=== PATIENT | male | born 1985 | race Caucasian/White ===

== ENCOUNTER 2021-12-04 19:55 | Observation (INO) | payer BC ==
[2021-12-04] MEDS ORDERED: ONDANSETRON 4 MG/2 ML VIAL ONE (20:52)
[2021-12-04] MEDS ORDERED: KETOROLAC 30 MG/ML INJ ONE (20:52)
[2021-12-04] MEDS ORDERED: NA CHLORIDE 0.9% 1,000 ML ONE (20:53)
[2021-12-04 21:14] LABS: Absolute Lymphocytes (CBC) 1.8 K/uL (0.7-4.9); Hematocrit 43.6 % (39.6-49.0); MCV 87.6 fL (80-100); MPV 8.3 fL (7.6-11.3); RBC Red Blood Cell Count 4.97 M/uL (4.33-5.43)
[2021-12-04 21:33] LABS: Albumin 4.1 g/dL (3.4-5.0); Bilirubin Direct 0.2 mg/dL (0-0.2); Bilirubin Total 0.7 mg/dL (0.2-1.0); Potassium 3.7 mmol/L (3.5-5.1); Protein, Total 7.1 g/dL (6.4-8.2)
--- NOTE | 2021-12-04 22:05 | RAD REPORT ---
EXAM DESCRIPTION: RAD - Chest Single View - 12/04/2021 9:42 pm CLINICAL HISTORY: COUGH Chest pain. COMPARISON: No comparisons FINDINGS: Portable technique limits examination quality. The lungs are grossly clear. The heart is normal in size. No displaced fractures. IMPRESSION: No acute intrathoracic process suspected.
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
[2021-12-05] MEDS ORDERED: ONDANSETRON 4 MG/2 ML VIAL IV PRN (00:43)
[2021-12-05] MEDS ORDERED: MORPHINE 4 MG/ML SYR IV PRN (00:43)
[2021-12-05] MEDS ORDERED: ACETAMINOPHEN 325 MG TABLET PO PRN (00:43)
[2021-12-05] MEDS ORDERED: NA CHLORIDE 0.9% 1,000 ML ONE (00:53)
[2021-12-05] MEDS ORDERED: NA CHLORIDE 0.9% 1,000 ML IV SCH (01:00)
[2021-12-05 01:51] VITALS: BMI 26.6
[2021-12-05 08:05] VITALS: TEMP 97.8
[2021-12-05] MEDS ORDERED: MORPHINE 4 MG/ML SYR ONE ×2 (09:00→14:01)
[2021-12-05] MEDS ORDERED: ONDANSETRON 4 MG/2 ML VIAL ONE (09:00)
--- NOTE | 2021-12-05 09:12 | RAD REPORT ---
EXAM DESCRIPTION: RAD - Chest Single View - 12/05/2021 9:01 am CLINICAL HISTORY: repeat xray to evaluate multiple rib fractures Chest pain. COMPARISON: Chest Single View dated 12/04/2021; Head C Spine Cap W Con dated 12/04/2021 FINDINGS: Portable technique limits examination quality. The lungs are grossly clear. No pneumothorax. The heart is normal in size. Nondisplaced left-sided ri b fractures are known to be present however are generally occult on plain radiograph. .
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
--- NOTE | 2021-12-05 13:45 | P.PN ---
Date of Service: 12/05/21 S: Patient has no specific complaints, sitting up in a chair, eating his full liquids. Asking about going home. is here. O: Clinically patient looks well. Good effort on incentive spirometry. Chest x-ray shows no evidence of any pneumothorax. A: Surgically stable P: Discharge home. Patient will see me in 2 or 3 days in my office. Should he have any questions or problems, he will return to the emergency room, or contact me.
[2021-12-05 15:32] VITALS: O2SAT 98
[2021-12-05 17:39] VITALS: BP 120/64
== END 2021-12-05 14:05 | disposition home or self-care (01) ==
LOC: ER 19:55 → ERHOLD 12-05 01:16
PROVIDERS: ADMIT Surgery; ATTEND Surgery
DX: S22.42XA Multiple fractures of ribs, left side, initial encounter for closed fracture (principal); V86.96XA Unspecified occupant of dirt bike or motor/cross bike injured in nontraffic accident, initial encounter; Y92.007 Garden or yard of unspecified non-institutional (private) residence as the place of occurrence of the external cause; R01.1 Cardiac murmur, unspecified; Z20.822 Contact with and (suspected) exposure to COVID-19
CPT/HCPCS: 96361; 85025; 80048; 36415; 86900; 86850; 86901; 80076; 70450; 72125; 71260; 74177; 71045 ×2; 73010; 94010 ×2; 96375; 96374; 99285; U0003; Q9967; J7030 ×2; J2405 ×2; G0378 ×2